=== PATIENT | male | born 1945 | race Caucasian/White ===

== ENCOUNTER 2018-01-19 11:21 | Emergency (ER) | payer OTHER, MEDICARE ==
[~2018-01-19] VITALS: Wt 104.8 kg
--- NOTE | ~2018-01-19 | EKG ---
[place], [place] ELECTROCARDIOGRAM REPORT NAME: MERCEDEZ DAVID UNIT #: [id number] ROOM: DOCTOR: KRYSTIN DRAFT REPORT BIRTHDATE: [birth year] [facility] Test Date: 2018-01-19 Test Time: 11:41:46 Pat Name: MERCEDEZ DAVID Department: Room: Gender: [employer]: : 1945 Requested By: DIANELYS PANCHAL Order Number: [id number] Reading MD: Tyrone Cochran MD Measurements Intervals [place] Rate: 83 P: 26 NM: 190 QRS: -13 QRSD: 92 T: 4 QT: 366 QTc: 430 Interpretive Statements Sinus rhythm Multiple ventricular premature complexes Electronically Signed On 01-21-2018 11:01:49 PDT by Tyrone Cochran MD CM:EKGRPT:ELECTROCARDIOGRAM REPORT [id number] DIANELYS PANCHAL MD [facility] DRAFT REPORT DIANELYS PANCHAL MD
[~2018-01-19 11:21] MED LIST: AMLODIPINE BESY10 MG PO; ASPI-COR81 M1 PO; BENADRYL25 MG PO; CANASA1000 MG RC; HYDR25T PO; LISINOPRIL20 MG PO; MAREPA1200 MG PO; MULTIPLE VITAMI1 CAP PO; NAPROXEN220 MG PO; PREDNICOT20 MG PO
[2018-01-19 11:43] LABS: BASO % 0.8 % (0.0-1.0); EOS # 0.1 10*3/uL (0.0-0.4); EOS % 2.8 % (1.0-4.0); HEMATOCRIT 41.7 % (42.0-52.0); HEMOGLOBIN 14.2 g/dl (14.0-18.0); LYMPH # 0.8 10*3/uL (1.3-4.4); LYMPH % 15.6 % (27.0-41.0); MEAN CELL VOLUME 89.9 fl (80.0-94.0); MEAN CORPUSCULAR HGB 30.6 pg (27.0-31.0); MEAN CORPUSCULAR HGB CONC 34.1 g/dl (33.0-37.0); MEAN PLATELET VOLUME 8.6 fl (9.6-12.3); MONO # 0.5 10*3/uL (0.1-1.0); MONO % 10.2 % (3.0-9.0); NEUT # 3.5 10*3/uL (2.3-7.9); NEUT % 70.4 % (47.0-73.0); PLATELET COUNT AUTOMATED 164 10*3/uL (130-400); RED BLOOD COUNT 4.64 10*6/uL (4.50-5.90); RED CELL DISTRI WIDTH 13.5 % (0-14.5)
[2018-01-19 11:51] LABS: ACT PARTIAL THROMBO TIME 24.2 SECONDS (20.8-31.5)
[2018-01-19 12:00] LABS: ALBUMIN 4.2 gm/dl (3.1-4.5); ALKALINE PHOSPHATASE 62 U/L (45-117); BUN 13 mg/dl (7-24); CHLORIDE 103 mmol/L (98-107); CREATININE 1.04 mg/dL (0.70-1.30); POTASSIUM 3.6 mmol/L (3.5-5.1); SGOT/AST 21 IU/L (3-35); SGPT/ALT 43 U/L (12-78); SODIUM 140 mmol/L (136-145); TOTAL PROTEIN 7.2 gm/dL (6.4-8.2)
[2018-01-19 12:05] LABS: TROPONIN I < 0.015 ng/ml (<0.045)
[2018-01-19 12:07] LABS: THYROID STIM HORMONE (HS) 0.691 uIU/ml (0.358-4.75)
[2018-01-19 12:14] LABS: BILIRUBIN NEGATIVE (NEGATIVE); BLOOD NEGATIVE (NEGATIVE); CLARITY CLEAR (CLEAR); COLOR YELLOW (YELLOW); GLUCOSE NEGATIVE (NEGATIVE); KETONE NEGATIVE (NEGATIVE); LEUKO ESTERASE NEGATIVE (NEGATIVE); NITRITE NEGATIVE (NEGATIVE); UROBILINOGEN 0.2 E.U./dl (0.2-1.0)
[2018-01-19 12:23] VITALS: BP 133/59
[2018-01-19 12:32] LABS: EPITHELIAL CELLS 0-2
== END 2018-01-19 12:15 | disposition home or self-care (01) ==
LOC: ED 11:21
PROVIDERS: Emergency Medicine
DX: I49.3 Ventricular premature depolarization (principal); I10 Essential (primary) hypertension; E78.00 Pure hypercholesterolemia, unspecified; Z90.89 Acquired absence of other organs; Z79.82 Long term (current) use of aspirin; Z79.899 Other long term (current) drug therapy

== ENCOUNTER 2019-07-17 09:07 | Emergency (ER) | payer OTHER ==
[~2019-07-17] VITALS: Ht 172.7 cm; Wt 98.4 kg
[2019-07-17 09:15] VITALS: BP 134/71
[2019-07-17] MEDS ORDERED: CORTISPORIN SUS10 ML OT (10:11)
== END 2019-07-17 10:21 | disposition home or self-care (01) ==
LOC: ED 09:07
DX: T16.2XXA Foreign body in left ear, initial encounter (principal); I10 Essential (primary) hypertension; E11.9 Type 2 diabetes mellitus without complications; Z79.82 Long term (current) use of aspirin; Z79.899 Other long term (current) drug therapy; X58.XXXA Exposure to other specified factors, initial encounter; Y93.89 Activity, other specified; Y92.89 Other specified places as the place of occurrence of the external cause; Y99.8 Other external cause status

== ENCOUNTER 2022-12-10 18:52 | Inpatient (IN) | payer OTHER ==
[2022-12-10] VITALS (7 sets, daily range): BP systolic 110–140; BP diastolic 74–93
[~2022-12-10] VITALS: Ht 172.7 cm; Wt 102.6 kg
[~2022-12-10 18:52] MED LIST changes: +CORTISPORIN SUS10 ML OT
[2022-12-10 20:09] LABS: BASO # 0.1 10*3/uL (0.0-0.1); BASO % 0.9 % (0.0-1.0); EOS # 0.1 10*3/uL (0.0-0.4); EOS % 1.4 % (1.0-4.0); HEMATOCRIT 52.1 % (42.0-52.0); LYMPH # 1.4 10*3/uL (1.3-4.4); MEAN CORPUSCULAR HGB 33.9 pg (27.0-31.0); MEAN CORPUSCULAR HGB CONC 34.9 g/dl (33.0-37.0); MEAN PLATELET VOLUME 8.1 fl (9.6-12.3); MONO # 0.7 10*3/uL (0.1-1.0); MONO % 8.7 % (3.0-9.0); NEUT # 5.3 10*3/uL (2.3-7.9); NEUT % 70.2 % (47.0-73.0); PLATELET COUNT AUTOMATED 183 10*3/uL (130-400); RED BLOOD COUNT 5.37 10*6/uL (4.50-5.90); RED CELL DISTRI WIDTH 12.9 % (0-14.5); WHITE BLOOD COUNT 7.6 10*3/uL (4.8-10.8)
[2022-12-10 20:22] LABS: ACT PARTIAL THROMBO TIME 26.6 SECONDS (20.0-32.1)
[2022-12-10 20:33] LABS: ALKALINE PHOSPHATASE 66 U/L (46-116); BUN 16 mg/dl (9-23); CHLORIDE 101 mmol/L (98-107); POTASSIUM 3.3 mmol/L (3.4-5.1); SGPT/ALT 28 U/L (10-49); TOTAL PROTEIN 6.9 gm/dL (6.0-8.0)
[2022-12-10] MEDS ORDERED: NEURONTIN300 MG PO (21:27)
[2022-12-10] MEDS ORDERED: VITAMIN D31250 MC1 PO (21:28)
[2022-12-10] MEDS ORDERED: FLOMAX0.4 MG PO (21:29)
[2022-12-10] MEDS ORDERED: ATORVASTATIN CA10 M1 PO (21:29)
[2022-12-10] MEDS ORDERED: FLONASE ALLERG9.9 ML NAS (21:30)
[2022-12-10] MEDS ORDERED: CYMBALTA30 MG PO (21:30)
[2022-12-11 00:43] VITALS: BP 121/70
[2022-12-11 02:03] VITALS: BP 138/81
[2022-12-11 03:33] VITALS: BP 108/56
[2022-12-11 05:52] VITALS: BP 136/81
[2022-12-11 07:46] LABS: BASO # 0.1 10*3/uL (0.0-0.1); BASO % 0.8 % (0.0-1.0); EOS # 0.2 10*3/uL (0.0-0.4); EOS % 2.5 % (1.0-4.0); HEMATOCRIT 47.5 % (42.0-52.0); LYMPH # 1.4 10*3/uL (1.3-4.4); MEAN CORPUSCULAR HGB 34.2 pg (27.0-31.0); MEAN CORPUSCULAR HGB CONC 34.5 g/dl (33.0-37.0); MEAN PLATELET VOLUME 8.1 fl (9.6-12.3); MONO # 0.5 10*3/uL (0.1-1.0); MONO % 8.2 % (3.0-9.0); NEUT # 4.3 10*3/uL (2.3-7.9); NEUT % 66.4 % (47.0-73.0); PLATELET COUNT AUTOMATED 147 10*3/uL (130-400); RED CELL DISTRI WIDTH 13.1 % (0-14.5); WHITE BLOOD COUNT 6.4 10*3/uL (4.8-10.8)
[2022-12-11 08:10] VITALS: BP 127/61
[2022-12-11 08:51] LABS: VITAMIN D, 25-HYDROXY 36.5 ng/mL (30-100)
[2022-12-11 08:53] LABS: ALKALINE PHOSPHATASE 54 U/L (46-116); BUN 14 mg/dl (9-23); CHLORIDE 103 mmol/L (98-107); CHOLESTEROL 152 mg/dL (<200); FREE T4 1.07 ng/dl (0.89-1.76); LDL CHOLESTEROL 80 mg/dL (9-159); POTASSIUM 3.5 mmol/L (3.4-5.1); SGPT/ALT 23 U/L (10-49); THYROID STIM HORMONE (HS) 1.395 uIU/ml (0.550-4.780); TOTAL PROTEIN 6.1 gm/dL (6.0-8.0); TRIGLYCERIDES 202 mg/dl (<150)
[2022-12-11 13:05] VITALS: BP 145/85
[2022-12-11] MEDS ORDERED: TOPROL XL25 MG PO (16:48)
[2022-12-11] MEDS ORDERED: XARELTO20 M1 PO (16:48)
== END 2022-12-12 02:24 | disposition left against medical advice (07) | DRG 310 ==
LOC: ED 18:52 → EDHOLD 21:10 → 4E 12-11 13:06 → EDHOLD 12-11 14:18
PROVIDERS: Emergency Medicine; Student in an Organized Health Care Education/Training Program; ADMIT Internal Medicine; ATTEND Internal Medicine
PROC: 4A02XM4 Measurement of Cardiac Total Activity, External Approach (ICD-10-PCS; principal; 2022-12-11)
PROC: 3E073KZ Introduction of Other Diagnostic Substance into Coronary Artery, Percutaneous Approach (ICD-10-PCS; 2022-12-11)
DX: I48.91 Unspecified atrial fibrillation (principal); I10 Essential (primary) hypertension; E87.6 Hypokalemia; D75.1 Secondary polycythemia; E78.5 Hyperlipidemia, unspecified; G47.33 Obstructive sleep apnea (adult) (pediatric); E11.42 Type 2 diabetes mellitus with diabetic polyneuropathy; E11.65 Type 2 diabetes mellitus with hyperglycemia; Z53.29 Procedure and treatment not carried out because of patient's decision for other reasons; Z87.891 Personal history of nicotine dependence; Z82.49 Family history of ischemic heart disease and other diseases of the circulatory system; Z79.82 Long term (current) use of aspirin; Z79.899 Other long term (current) drug therapy

== ENCOUNTER 2024-12-07 13:47 | Emergency (ER) | payer OTHER ==
[~2024-12-07] VITALS: Wt 102.5 kg
[~2024-12-07 13:47] MED LIST changes: +ATORVASTATIN CA10 M1 PO; +CYMBALTA30 MG PO; +FLOMAX0.4 MG PO; +FLONASE ALLERG9.9 ML NAS; +NEURONTIN300 MG PO; +TOPROL XL25 MG PO; +VITAMIN D31250 MC1 PO; +XARELTO20 M1 PO
[2024-12-07 13:57] VITALS: BP 141/72
[2024-12-07] MEDS ORDERED: DOXYCYCLINE HYC20 MG PO (14:09)
[2024-12-07] MEDS ORDERED: JARDIANCE10 MG PO (14:09)
[2024-12-07] MEDS ORDERED: VITAMIN D310 MC3 PO (14:10)
[2024-12-07] MEDS ORDERED: VESICARE5 MG PO (14:10)
[2024-12-07] MEDS ORDERED: MONTELUKAST SOD10 MG PO (14:11)
[2024-12-07] MEDS ORDERED: TYLENOL EXTRA500 MG PO (14:11)
[2024-12-07 14:39] LABS: BASO % 0.6 % (0.0-1.0); EOS # 0.2 10*3/uL (0.0-0.4); EOS % 2.8 % (1.0-4.0); MEAN CELL VOLUME 92.2 fl (80.0-94.0); MEAN CORPUSCULAR HGB 32.3 pg (27.0-31.0); MEAN PLATELET VOLUME 8.4 fl (9.6-12.3); MONO # 0.6 10*3/uL (0.1-1.0); MONO % 10.9 % (3.0-9.0); NEUT # 3.6 10*3/uL (2.3-7.9); NEUT % 68.5 % (47.0-73.0); PLATELET COUNT AUTOMATED 159 10*3/uL (130-400); RED BLOOD COUNT 4.34 10*6/uL (4.50-5.90); RED CELL DISTRI WIDTH 13.5 % (0-14.5); WHITE BLOOD COUNT 5.3 10*3/uL (4.8-10.8)
[2024-12-07 15:03] LABS: BUN 14 mg/dl (9-23); CHLORIDE 100 mmol/L (98-107)
[2024-12-07] MEDS ORDERED: POTASSIUM CHLORIDE 20 MEQ TAB PO ONE (15:55)
== END 2024-12-07 18:05 | disposition home or self-care (01) ==
LOC: ED 13:47
PROVIDERS: Internal Medicine
DX: I48.91 Unspecified atrial fibrillation (principal); I10 Essential (primary) hypertension; E11.9 Type 2 diabetes mellitus without complications; Z79.82 Long term (current) use of aspirin; Z79.899 Other long term (current) drug therapy; Z90.89 Acquired absence of other organs; Z98.890 Other specified postprocedural states

== ENCOUNTER → 2025-07-03 | Outpatient (CLI) | payer MEDICARE, OTHER ==
[~2025-07-03] MED LIST changes: +DOXYCYCLINE HYC20 MG PO; +JARDIANCE10 MG PO; +MONTELUKAST SOD10 MG PO; +TYLENOL EXTRA500 MG PO; +VESICARE5 MG PO; +VITAMIN D310 MC3 PO
== END | disposition home or self-care (01) ==
LOC: CARD 12:59
PROVIDERS: ATTEND Internal Medicine Cardiovascular Disease
DX: R06.02 Shortness of breath (principal); M79.89 Other specified soft tissue disorders